=== PATIENT | female | born 1990 | race Caucasian/White ===

== ENCOUNTER → 2017-02-10 | Outpatient (CLI) | payer OTHER ==
--- NOTE | 2017-02-10 17:09 | KCIC ---
PROCEDURE MRI study of the left shoulder without contrast HISTORY Left shoulder pain for 2 months. TECHNIQUE Noncontrast MRI sequences of the left shoulder were performed in all 3 planes. COMPARISON None available. FINDINGS There is tendinosis of the supraspinatus tendon. No complete rotator cuff tear is seen. There is a small amount of fluid within the subacromial bursa. There is no significant arthritic change of the AC joint. No AC joint separation is seen. A type 3 acromial process is seen. This finding may impinge the acromial humeral space. No chronic cystic change or erosive change of the lateral aspect of the humeral head is seen. There is a small focus of bone marrow edema involving the anterior aspect of the greater tubercle. This could be due to a small contusion. No cortical fracture line is seen. The subscapularis tendon and transverse ligament are intact. The tendon of the long head of the biceps is intact. No muscle atrophy is seen. The glenoid labrum is intact. No paralabral ganglion cyst or spinoglenoid notch ganglion cyst is seen. The glenohumeral joint is unremarkable. No glenohumeral joint effusion is seen. No loose body is evident. IMPRESSION Small bone contusion of the anterior aspect of the greater tubercle. Tendinosis of the supraspinatus tendon of the rotator cuff. No rotator cuff tear is seen. Mild subacromial bursitis. Electronically signed by: Joe Johnston MD (Feb 10, 2017 17:08:30)
== END | disposition home or self-care (01) ==
LOC: KCIC MRI 16:03
PROVIDERS: ATTEND Orthopaedic Surgery
DX: M25.512 Pain in left shoulder (principal)
CPT/HCPCS: 73221